=== PATIENT | male | born 2000 | race Caucasian/White ===

== ENCOUNTER 2022-06-09 08:37 | Emergency (ER) | payer OTHER, BC, MEDICAID, SELFPAY ==
[2022-06-09 08:41] VITALS: BP 136/79; PULSE 66; RESP 18; TEMP 36.4; O2SAT 100; BMI 26.6
--- NOTE | 2022-06-09 09:00 | ED.WOUNDLAC ---
HPI - Wound/Laceration General Time Seen by Provider: 09:02 Date Seen: 06/09/22 Chief Complaint: Laceration/Wound Stated Complaint: Lac left protestant Time Seen by Provider: 06/09/22 08:51 Source: patient, family (Dad is with, they work together) and RN notes reviewed Mode of arrival: ambulatory Limitations: no limitations History of Present Illness HPI narrative: Patient is here from work when he hit his left protestant area into steel bar. 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 There was no loss of consciousness but this started bleeding right away. He felt dizzy and did complain of blurry vision in both eyes. He states that he is still having the symptoms. He has had 6 prior concussions from football. His tetanus was in 2012, did review with him we could updated today or he can wait until next year. He will let me know. Onset (ago): minute(s) Location: face Related Data Home Medications Medication Instructions Recorded Confirmed No Known Home Medications 06/09/22 06/09/22 Allergies Allergy/AdvReac Type Severity Reaction Status Date / Time amoxicillin Allergy Verified 06/09/22 08:44 Review of Systems Status of ROS: Reports: 6 or more systems reviewed and unremarkable except as noted in History and below PFSH PFSH Social History Smoking Status: Never smoker Do you use any of these nicotine containing products: None How often do you have a drink containing alcohol: monthly or less AUDIT-C Alcohol total score: 1 Non-prescribed substance use: denies use Exam Const: Vital Signs, click to edit/add: Vital Signs - 24 hr 06/09/22 08:41 Temperature 97.5 F L Pulse Rate [Right Pulse Oximeter] 66 Respiratory Rate 18 Blood Pressure [Le ft Upper Arm] 136/79 Pulse Oximetry 100 Oxygen Delivery Me thod Room Air Documenting provider has reviewed patient's vital signs: yes Common normals: no apparent distress, average body habitus, oriented x3, no limitations, healthy appearing and alert General appearance: cooperative and comfortable HENMT: Common normals: normocephalic, hearing grossly normal bilaterally, external ears normal, EAC's normal, TM's normal bilaterally, external nose normal and nasal mucous membranes and turbinates normal Head and scalp: normocephalic Nose: external nose normal and nasal mucous membranes and turbinates normal External ear: external ears normal External auditory canal: EAC's normal Tympanic membrane: TM's normal bilaterally Other: Has linear laceration left protestant area with just a small little Teeny corner. There is a little gap urged that I can improve with compressing the wound edges together. I do think this will benefit from a couple sutures to help minimize scarring. There is a little corner of a flap as well which the suturing will help close. It is not bleeding right now. I did take sterile saline and clean the wound and inspected it. Eye: Common normals: PERRL, EOMs intact bilaterally, conjunctivae normal and no scleral icterus Conjunctiva: conjunctiva(e) normal Pupil: PERRL Neck & C-Spine: Common normals: full ROM, no lymphadenopathy and supple Neuro: Mary Coma Scale: document GCS findings [place] coma scale eye opening: Spontaneous (4) Mary coma scale verbal response: Orientated (5) Mary coma scale motor response: Obey commands (6) [place] coma scale total score: 15 Common normals: oriented x3 Sensorium/orientation: alert Speech: speech normal Gait (neuro): normal gait Course Course Hospital Course: Patient did opt to have his tetanus updated today. Tdap was ordered. Vital Signs Vital signs: Initial Vital Signs Temperature 97.5 F L 06/09/22 08:41 Temperature Source Temporal Artery Scan 06/09/22 08:41 Pulse Rate 66 06/09/22 08:41 Respiratory Rate 18 06/09/22 08:41 Blood Pressure 136/79 06/09/22 08:41 Blood Pressure Mean 98 06/09/22 08:41 Blood Pressure Position Sitting 06/09/22 08:41 Pulse Oximetry 100 06/09/22 08:41 Oxygen Delivery Method 06/09/22 08:41 Vital Signs Temperature 97.5 F L 06/09/22 08:41 Pulse Rate 66 06/09/22 08:41 Respiratory Rate 18 06/09/22 08:41 Blood Pressure 136/79 06/09/22 08:41 Pulse Oximetry 100 06/09/22 08:41 Oxygen Delivery Method 06/09/22 08:41 Temperature 97.5 F L 06/09/22 08:41 Pulse Rate 66 06/09/22 08:41 Respiratory Rate 18 06/09/22 08:41 Blood Pressure 136/79 06/09/22 08:41 Pulse Oximetry 100 06/09/22 08:41 Oxygen Delivery Method 06/09/22 08:41 Critical Care Time Critical Care Time Critical Care Time: No Discharge Plan Discharge Clinical Impression: Facial laceration Patient Disposition: Home, Self-Care Condition: Stable Instructions: Care For Your Stitches (ED), Laceration (ED), Concussion (ED) Additional Instructions: Need to schedule a clinic followup in 5-7 days to assess the wound for suture removal. If there are concerns for infection, please seek re-evaluation. May shower as usual. Use bacitracin to the wound 3 to 4 times a day until stitches are out. Can use Tylenol and/or ibuprofen as needed for any headache or pain control, follow bottle directions for dosing. Given her history of prior concussions, if you have ongoing symptoms of blurry vision, headache, etc., do need to follow up in clinic to discuss concussion care. Do recommend getting scheduled to see an eye doctor for full formal eye testing, it is possible that you might need corrective eyewear. Activity Level: Activity as Tolerated Prescriptions: No Action No Known Home Medications Stand Alone Forms: [employer] Info Instructions Procedures Laceration Laceration 1: Pre procedure diagnosis: Facial laceration left Post procedure diagnosis: Same Site marking: not applicable Name of person performing procedure: Mckenna Rothman Site: face Side (If applicable): left Size (cm): 1.5 Description: linear Depth: simple, single layer Local Anesthetic: lidocaine 1% and with epi Amount of anesthesia used (mL): 2 Pre-repair: wound explored, irrigated extensively and deep structures intact Skin layer closed with: other (Ethilon) Size (cm): 6-0 Number of sutures: 4 Technique: simple, interrupted
== END 2022-06-09 09:37 | disposition home or self-care (01) ==
PROVIDERS: Emergency Provider Family Medicine
DX: S01.81XA Laceration without foreign body of other part of head, initial encounter (principal); W22.09XA Striking against other stationary object, initial encounter; Y93.H3 Activity, building and construction; Y92.9 Unspecified place or not applicable; Y99.0 Civilian activity done for income or pay
CPT/HCPCS: 12011; 99283